=== PATIENT | male | born 1950 | race Caucasian/White ===

== ENCOUNTER 2016-08-23 07:00 | Inpatient (IN) | payer OTHER, MEDICARE ==
[~2016-08-23] VITALS: Ht 175.3 cm; Wt 79.4 kg
[~2016-08-23 07:00] MED LIST: ATORVASTATIN CA10 M1 PO; CYMBALTA60 M1 PO; KLONOPIN0.5 M1 PO; LOSARTAN POTAS100 M1 PO
--- NOTE | 2016-08-30 13:57 | Admission Core Measures ---
Admission Meds I reviewed the following Meds: Current Medications Sig/Refugio Start time Last Medication Dose Stop Time Status Admin Atorvastatin Calcium 10 MG DAILY 08/31 1000 UNVr (Lipitor) Duloxetine HCl 120 MG DAILY 08/31 1000 UNVr (Cymbalta) Losartan Potassium 100 MG DAILY 08/31 1000 UNVr (Cozaar) Ropivacaine 500 ML ONCE ONE 08/30 1300 AC (NAROPIN) 09/01 0639 ON-Q Ball 1 BAG Acute Coronary Syndrome Inclusion Criteria ACS Diagnosis No Inpatient Core Measures LDL Reminder: If No, please order W/I first 24hr of stay Congestive Heart Failure Inclusion Criteria CHF Diagnosis No Cerebrovascular accident Inclusion Criteria CVA/TIA Diagnosis No Inpatient Core Measures Bedside Swallow Eval Reminder: If BSE failed, place ST order Antithrombotic Reminder: Order Antithrombotic Medication by end of day 2 Antithrombotic Reminder: Document Reason Antithrombotic Not ordered by end of day 2 AFIB/Flutter Reminder: If Present, add to problem list AFIB/Flutter Reminder: Order Anticoag Medication for pts with AFIB/Flutter Atherosclerosis Reminder: If Present, add to problem list LDL Reminder: If No, please order W/I first 24hr of stay PT Order Reminder: If No, please order Venous thromboembolism Inpatient Core Measures VTE Risk Factors: Age > 40, Surgery No [facility] VTE prophylaxis d/t No contraindications No VTE Pharm Prophylaxis d/t No contraindications Inclusion Criteria - Per Current guidelines, there needs to be overlap - treatment for the first 5 days of Warfarin therapy. - Parenteral Anticoagulation (IV or SC) needs to be - given along with Warfarin therapy. VTE Diagnosis No VTE Type NONE VTE Confirmed by (Test) NONE Problem List As ranked by this Provider includes Assessment & Plan 1. S/P total knee replacement HOME MEDS Home Med List Atorvastatin Calcium 10 MG TABLET 1 TAB PO DAILY CHOLESTEROL (Reported) Clonazepam (Klonopin) 0.5 MG TABLET 1 TAB PO BIDP PRN ANXIETY / SLEEP ( Reported) Duloxetine HCl (Cymbalta) 60 MG CAPSULE.DR 2 CAP PO DAILY PAIN (Reported) Losartan Potassium 100 MG TABLET 1 TAB PO DAILY HTN (Reported)
--- NOTE | 2016-08-30 14:01 | Surgical Discharge Summary ---
Visit Information Visit Dates Admission Date: 08/30/16 Discharge Date: 09/01/16 History of Present Illness Chief Complaint: See H and P Surgical History Pertinent Surgical History: unobtainable Review of Systems: See H and P Hospital Course Course Attending Physician: BREEZY COBB MD Primary Care Physician: RAMONITA SAMANIEGO,GHISLAINE Ramon Hospital Course: Pt underwent a right tkr by Dr Cobb on 08/30 and was brought to the PACU in stable condition. Over the course of his stay, he was able to work with PT - WBAT. He was able to void spontaneously. His pain was well controlled. He tolerated a regular diet. He was deemed stable for discharge to home with services. Allergies: Coded Allergies: No Known Allergies (08/18/16) Significant Procedures: R TKR See operative report Disposition Summary Disposition Principal Diagnosis: DJD/OA Additional Diagnosis: anxiety, depression, hypercholesterolemia, htn Discharge Disposition: home health services Discharge Instructions General Discharge Information Code Status: Full Code Patient's Diet: regular Patient's Activity: WBAT Follow-Up Instructions/Appts: Keep scheduled appt in 6 weeks, call sooner if needed Medications at Discharge Discharge Medications: Continue taking these medications: Atorvastatin Calcium (Atorvastatin Calcium) 10 MG TABLET 1 Tablet ORAL DAILY Losartan Potassium (Losartan Potassium) 100 MG TABLET 1 Tablet ORAL DAILY Duloxetine HCl (Cymbalta) 60 MG CAPSULE. 2 Capsule ORAL DAILY Clonazepam (Klonopin) 0.5 MG TABLET 1 Tablet ORAL 2 x Daily as needed as needed for ANXIETY / SLEEP Start taking the following new medications: Docusate Sodium (Colace) 100 MG CAPSULE 1 Capsule ORAL TWICE DAILY Qty = 14 No Refills Polyethylene Glycol 3350 (Miralax) 17 GRAM POWD.PACK 1 Packet ORAL DAILY Qty = 7 No Refills Instructions: dissolve in water Hydromorphone HCl (Dilaudid) 4 MG TABLET 1-2 Tablet ORAL EVERY 4 HOURS NEEDED Qty = 36 No Refills Morphine Sulfate (Ms Contin) 15 MG TABLET.ER 1 Tablet ORAL TWICE DAILY Qty = 12 No Refills Aspirin (Ecotrin*) 325 MG TABLET.DR 1 Tablet ORAL TWICE DAILY Qty = 60 No Refills
--- NOTE | 2016-08-30 14:02 | Patient Discharge Instructions ---
Discharge Instructions General Discharge Information You were seen/treated for: Knee pain You had these procedures: Total knee replacement Watch for these problems: temp>101, increased redness or drainage of wounds No bath, but you may shower: Yes Other wound care: Keep incision clean and dry, may shower, no bathing Diet Continue normal diet: Yes Activity Activity Self Limited: Yes Activity Limited to: Weight bear as tolerated Acute Coronary Syndrome Inclusion Criteria At DC or during hospital stay patient has or had the following: Discharge Core Measures Meds if any: Prescribed or Continued at Discharge Meds if any: NOT Prescribed or Continued at Discharge Congestive Heart Failure Inclusion Criteria At DC or during hospital stay patient has or had the following: Discharge Core Measures Meds if any: Prescribed or Continued at Discharge Meds if any: NOT Prescribed or Continued at Discharge Cerebrovascular accident Inclusion Criteria At DC or during hospital stay patient has or had the following: CVA/TIA Diagnosis No Discharge Core Measures Meds if any: Prescribed or Continued at Discharge Meds if any: NOT Prescribed or Continued at Discharge Venous thromboembolism Discharge Core Measures - Per Current guidelines, there needs to be overlap - treatment for the first 5 days of Warfarin therapy. - If discharged on Warfarin prior to 5 days of - overlap therapy, the patient will need to be - assessed for post discharge needs including - *Post discharge parental anticoagulation - *Warfarin and/or parental anticoagulation education - *Follow up date to check INR post discharge Meds if any: Prescribed or Continued at Discharge Note: Overlap Therapy is Warfarin and Anticoagulant Meds if any: NOT Prescribed or Continued at Discharge
[2016-08-30] MEDS ORDERED: MS CONTIN15 M2 PO (14:05)
[2016-08-30] MEDS ORDERED: MIRALAX17 G1 PO (14:05)
[2016-08-30] MEDS ORDERED: ASPIRIN EC325 M2 PO (14:05)
[2016-08-30] MEDS ORDERED: COLACE100 M1 PO (14:05)
[2016-08-30] MEDS ORDERED: DILAUDID4 M1 PO (14:05)
--- NOTE | 2016-08-30 15:32 | Operative Report ---
Operative/Inv Procedure Report Surgery Date: 08/30/16 Name of Procedure: Right total knee replacement Pre-Operative Diagnosis: Primary right knee DJD Post-Operative Diagnosis: Same Estimated Blood Loss: 50ml to 100ml Surgeon/Software Program Manager: JORDYN SAMANIEGO,BREEZY Luis Anesthesia: block Operative/Procedure Note Note: Description of Procedure: The patient was taken to the operating room and positively identified. After induction of spinal anesthesia and administration of appropriate pre-operative antibiotics, the patient was positioned supine on the operating room table and all bony prominences were well padded. A well-padded pneumatic tourniquet was placed on the right upper thigh. After performing a surgical timeout, the right lower extremity was prepped and draped in the usual sterile fashion. After exsanguination with Esmarch the tourniquet was inflated to 250mm of mercury. A standard medial parapatellar approach was made to the knee. This was carried down through skin and subcutaneous tissue to the level of the fascia. Meticulous hemostasis was maintained with Bovie electrocautery. The extensor mechanism and patellar retinaculum were opened sharply and the patella was everted. The infrapatellar fat was resected in order to improve exposure. Osteophytes were trimmed from the patella and femoral condyles and the patella was re-everted and tucked laterally. A medial release was performed and the cruciate ligaments were resected. The tibia was then subluxed anteriorly. Utilizing the appropriate extra-medullary guide, the proximal tibia was trimmed perpendicular to the long axis of the tibial shaft. Attention was then turned to the femur. After opening the medullary canal, the distal femoral cut was made in 6 degrees of valgus utilizing the appropriate intra-medullary guide. The extension gap was checked and found to be appropriate. The femur was then sized and the remainder of the femoral cuts were made with a size 5 4-in-1 femoral cutting guide. The flexion gap was checked and found to be symmetric and appropriate. The knee was then trialed with a size 5 femoral component, a size 6 tibial component and a size 11 mm polyethylene insert. The patella was trimmed to accept an A 35 patella. This yielded excellent range of motion, stability and patellar tracking. All trial components were removed and the knee was copiously irrigated with sterile saline. All components were cemented into place with Milliken Simplex cement. All the components were of the Claudia Triathlon knee system of the above stated sizes. The knee was again irrigated after cementation. The extensor mechanism and patellar retinaculum were repaired using interrupted #1 vicryl suture. The skin was re-approximated with 2-0 vicryl and closed with alyssia. A sterile dressing was applied, the tourniquet was deflated, the patient was awakened and taken to the recovery room in satisfactory condition.
--- NOTE | 2016-08-30 16:27 | PN- Orthopedic ---
Subjective Subjective: POST-OP NOTE: No complaints at this time. Still reporting some numbness of his legs. No nausea. Tolerating sips of clears. No dizziness. No shortness of breath. No chest pains. Due to void this evening. Objective Vital Signs and I&Os pacu flowsheet reviewed. vss Physical Exam: General - alert & oriented x 3. comfortable. no acute distress. Lungs - clear bilaterally. no w/r/r. Cardiac - s1s2. reg. Abdomen - soft. nontender. Extremities - warm bilaterally. no c/c/e. right leg dressing c/d/i. on q in place. calves soft and nontender b/l. sensation grossly intact b/l. motor function returning to b/l lower legs, but not full yet. Current Medications: Current Medications Sig/Refugio Start time Last Medication Dose Route Stop Time Status Admin Acetaminophen 0 .STK-MED ONE 08/30 1338 DC PO Atorvastatin Calcium 10 MG 1700 08/31 1700 AC PO Atorvastatin Calcium 10 MG DAILY 08/31 1000 DC PO Atorvastatin Calcium 10 MG 1700 08/30 1700 DC PO Duloxetine HCl 120 MG DAILY 08/31 1000 AC PO Losartan Potassium 100 MG DAILY 08/31 1000 AC PO Oxycodone HCl 0 .STK-MED ONE 08/30 1338 DC PO Ropivacaine 500 ML ONCE ONE 08/30 1300 AC ON-Q Ball 1 BAG INJ 09/01 0639 Assessment/Plan Assessment/Plan This 66 year old white male with hx htn is POD#0 s/p right total knee replacement for primary knee osteoarthritis advance diet as tolerated pain control as ordered bobby-operative ancef x 2 doses PT eval asa bid due to void this evening f/u am labs home meds ordered dressing change and on q removal POD#2 will d/w Core Measures/Miscellaneous Venous Thromboembolism VTE Risk Factors: Age > 40, Surgery VTE Contraindications: No Contraindications VTE Diagnosis: No VTE Type: NONE VTE Confirmed by (Test): NONE Beta Marko Is Beta Marko a Home Med? No Antibiotics Is Patient on Antibiotics? Yes If Yes: prophylaxis
--- NOTE | 2016-08-30 17:18 | NUR ---
NSG NOTE: PATIENT ARRIVED TO FLOOR AT 1718 FROM PACU VIA STRETCHER ACCOMPANIED BY DISTRIBUTION; PATIENT A/OX3; RA; VSS (SEE CHARTING); DENIES PAIN; ON-Q PUMP IN PLACE TO RT ADDUCTOR 5CM AT THE SKIN, 12 ML/HR; PATIENT HAS POS PULSES/CMS; DENIES NUMBNESS/TINGLING; IVF RUNNING PER ORDER; ALPS PLACED/ TEDS TO LLE; ORDER FOR FARIAS CATHETER IN ORDERS, CALLED SURGICAL PA TO CONFIRM, FARIAS WAS REMOVED IN PACU AT 1700, BEN OLIVER AWARE AND WILL CONT TO MONITOR FOR PATIENT TO VOID BY 2300; ORIENTED TO ROOM, CALL RODRÍGUEZ IN REACH, WILL CONT TO MONITOR
[2016-08-30 17:45] VITALS: BP 144/80
[2016-08-30 20:01] VITALS: BP 142/70
[2016-08-30 21:51] VITALS: BP 124/74
[2016-08-31] VITALS: BP 152/78
--- NOTE | 2016-08-31 00:37 | NUR ---
NURSING NOTE: PATIENTS VS 152/78 HR 105 T 98.1 RR 20 O2 SAT 94% ON RA PER MST. A&OX3, NO ACUTE DISTRESS, PT RESTING IN BED AND RATES PAIN 3/10. REFUSING PAIN MEDS AT THIS TIME. BENITO 416 DANUTA MADE AWARE, NO FURTHER ORDERS AT THIS TIME. WILL CONT TO MONITOR.
[2016-08-31 03:54] VITALS: BP 144/80
--- NOTE | 2016-08-31 07:23 | PN- Orthopedic ---
Subjective Subjective: POD#2 S/P R TKA NO MAJOR ISSUES OVERNIGHT DENIES CP, SOB, NO N+V WITH DIET Objective Vital Signs and I&Os Vital Signs Date Time Temp Pulse Resp B/P B/P Pulse O2 O2 Flow FiO2 Mean Ox Delivery Rate 08/31 0354 98.2 85 20 144/80 97 08/31 0000 98.1 105 20 152/78 94 Room Air 08/30 2151 98.1 107 19 124/74 92 Room Air 08/30 2000 97.8 110 19 142/70 95 Room Air 08/30 1745 98.5 96 16 144/80 98 Room Air Intake & Output 08/31 0800 08/31 0000 08/30 1600 08/30 0800 08/30 0000 08/29 1600 Intake Total 1330 1800 Output Total 450 400 Balance 880 1400 Intake, IV 850 900 Intake, Oral 480 900 Number 0 Bowel Movements Output, Urine 450 400 Patient 175 lb Weight Weight Reported by Patient Measurement Method Physical Exam: CV: RRR LUNGS: CLEAR ABD: SOFT, +BS EXT: DRSG DRY DISTAL CMS INTACT BILAT Assessment/Plan Assessment/Plan ORTHO STABLE PLAN OOB WITH PT ASA FOR DVT PROPHYLAXIS POSSIBLE DC LATER TODAY Core Measures/Miscellaneous Venous Thromboembolism VTE Risk Factors: Age > 40, Surgery VTE Contraindications: No Contraindications VTE Diagnosis: No VTE Type: NONE VTE Confirmed by (Test): NONE Beta Marko Is Beta Marko a Home Med? No Antibiotics Is Patient on Antibiotics? Yes If Yes: prophylaxis
[2016-08-31 08:37] VITALS: BP 150/80
[2016-08-31 08:45] LABS: ABSOLUTE BASOPHIL COUNT 0 /CUMM (0.0-0.2); ABSOLUTE EOSINOPHIL COUNT 0 /CUMM (0.0-0.7); ABSOLUTE GRANULOCYTE CT 12.5 /CUMM (1.4-6.5); ABSOLUTE LYMPH COUNT 1.1 /CUMM (1.2-3.4); ABSOLUTE MONOCYTE COUNT 1.1 /CUMM (0.10-0.60); BASOPHIL % 0.1 % (0.0-2.0); EOSINOPHIL % 0 % (0-5); HEMATOCRIT 37.3 % (42-52); MEAN CORPUSCULAR HGB 31.5 PG (27.0-31.0); MEAN CORPUSCULAR HGB CONC 32.8 G/DL (33.0-37.0); MEAN CORPUSCULAR VOLUME 96.2 FL (80.0-94.0); MEAN PLATELET VOLUME 7.4 FL (7.4-10.4); PLATELET COUNT 217 /CUMM (130-400); RBC DISTRIBUTION WIDTH 13.7 % (11.5-14.5); RED BLOOD CELL CT 3.88 /CUMM (4.70-6.10); WHITE BLOOD CELL COUNT 14.7 /CUMM (4.8-10.8)
[2016-08-31 09:43] LABS: GRANULOCYTE % 85.3 % (42.2-75.2)
[2016-08-31 12:21] VITALS: BP 160/80
[2016-08-31 17:32] VITALS: BP 160/70
[2016-08-31 21:54] VITALS: BP 142/72
--- NOTE | 2016-08-31 22:54 | NUR ---
ALERT AND ORIENTED X 3. ON ROOM AIR. DENIES SHORTNESS OF BREATH VITAL SIGNS STABLE. DENIES CHEST PAIN. +PULSES. DENIES NUMBNESS/TINGLING SKIN C/D/I. MEDICATION GIVEN FOR PAIN. PATIENT RESTING AT THIS TIME. NO DISTRESS NOTED
[2016-09-01 06:49] VITALS: BP 160/80
--- NOTE | 2016-09-01 07:05 | PN- Orthopedic ---
Subjective Subjective: POD#2 S/P RIGHT TKA NO MAJOR ISSUES OVERNIGHT NO COMPLAINTS NOW AMBULAITNG WELL WITH PT TOLERATING DIET Objective Vital Signs and I&Os Vital Signs Date Time Temp Pulse Resp B/P B/P Pulse O2 O2 Flow FiO2 Mean Ox Delivery Rate 09/01 0649 98.8 93 20 160/80 96 Room Air 08/31 2154 99.0 90 20 142/72 98 08/31 1732 98.4 87 19 160/70 97 08/31 1221 99.3 86 20 160/80 98 Room Air 08/31 0926 160/70 08/31 0837 99.0 80 20 150/80 95 Room Air Intake & Output 09/01 0800 09/01 0000 08/31 1600 08/31 0800 08/31 0000 08/30 1600 Intake Total 250 1000 1330 1800 Output Total 275 400 450 400 Balance -25 160 807 8882 Intake, IV 500 850 900 Intake, Oral 250 500 480 900 Number 0 0 Bowel Movements Output, Urine 275 400 450 400 Patient 175 lb Weight Weight Reported by Patient Measurement Method Physical Exam: CV: RRR LUNGS: CLEAR ABD: SOFT, +BS EXT: DRSG CHANGED, WOUND C/D/I NO CALF TENDERNESS BILAT DISTAL CMS INTACT BIALT Assessment/Plan Assessment/Plan ORTHO STABLE PLAN CONT OOB WITH PT D/C TODAY AFTER PT CLEARANCE Core Measures/Miscellaneous Venous Thromboembolism VTE Risk Factors: Age > 40, Surgery VTE Contraindications: No Contraindications VTE Diagnosis: No VTE Type: NONE VTE Confirmed by (Test): NONE Beta Marko Is Beta Marko a Home Med? No Antibiotics Is Patient on Antibiotics? Yes If Yes: prophylaxis
--- NOTE | 2016-09-01 07:30 | NUR ---
ONQ PUMP DC'D AT THIS TIME, NO COMPLAINTS. SCANT AMOUNT OF PINK TINGED DRAINAGE AT SITE. DRESSED WITH GUAZE AND PRESSURE APPLIED.
[2016-09-01 09:32] VITALS: BP 158/78
== END 2016-09-01 12:25 | disposition home health service (06) | DRG 470 ==
LOC: SDA 08-30 02:02 → ENRESERV 08-30 16:22 → ENTRNSPT 08-30 16:55 → 2NB 08-30 17:18 → CMPTRNSPT 08-30 18:22 → ENPENDDIS 09-01 07:17 → 2NB 09-01 12:25
PROVIDERS: Physician Assistant Surgical; ADMIT Orthopaedic Surgery
PROC: 0SRC0J9 Replacement of Right Knee Joint with Synthetic Substitute, Cemented, Open Approach (ICD-10-PCS; principal; 2016-08-30)
PROC: 3E0T3CZ (ICD-10-PCS; 2016-08-30)
DX: M17.11 Unilateral primary osteoarthritis, right knee (principal); I10 Essential (primary) hypertension; F17.200 Nicotine dependence, unspecified, uncomplicated; E78.00 Pure hypercholesterolemia, unspecified; F41.9 Anxiety disorder, unspecified
CPT/HCPCS: 2NBSP; 82436; 97110-GO; 97116-GO; 97161-GP; 97530-GO; C1713; J0690; J1100; J2405; J2795; J3490; J7042